=== PATIENT | male | born 1965 ===

== ENCOUNTER 2016-11-26 09:34 | Outpatient (CLI) | payer OTHER ==
--- NOTE | 2016-11-26 13:53 | XRay Report ---
RIGHT KNEE, 3 views: History: Acute right knee pain. Normal bone mineralization. Mild osteoarthritic changes are identified in the medial compartment and patellofemoral space. No evidence for fracture, bone lesion, large osteochondral defect or joint effusion. IMPRESSION: Mild osteoarthritic changes. No acute process.
== END 2016-11-26 09:35 | disposition home or self-care (01) ==
LOC: SPVIMAG 09:34
PROVIDERS: ATTEND Internal Medicine
DX: M25.561 Pain in right knee (principal)